=== PATIENT | female | born 1945 | race Caucasian/White ===

== ENCOUNTER → 2016-06-19 | Outpatient (CLI) | payer MEDICARE, OTHER ==
[~2016-06-19] MED LIST: ASCO500T6 PO; ASPI-479; BUDE10.2; BUDE10.22 INH; CETI10TA20 PO; CHOL100061 PO; ESTR1PAT10 TD; FERR325C; FERR325T36 PO; FLUO20CA42 PO; FURO-125; HCA25SU PR; HYDR30CR RC; MTP25TSR PO; MULT-74; OMEP20CA6; PANT40TA2 PO; SULI200T PO; TRAM-25 PO
[2016-06-19 10:41] LABS: BASOPHILS % (AUTO) 0 % (0-2); EOSINOPHILS # (AUTO) 0.2 10^3uL; EOSINOPHILS % (AUTO) 4 % (0-4); LYMPHOCYTES # (AUTO) 1.4 X10^3; MEAN CORPUSCULAR HEMOGLOBIN 29.5 PG (26.0-34.0); MEAN CORPUSCULAR HGB CONC 33.2 g/dL (31.0-37.0); MEAN CORPUSCULAR VOLUME 89 FL (80-100); MONOCYTES # (AUTO) 0.6 X10^3; MONOCYTES % (AUTO) 11 % (3-11); NEUTROPHILS # (AUTO) 3.4 X10^3; NEUTROPHILS % (AUTO) 60 % (51-67); PLATELET COUNT 259 10^3uL (150-450); WHITE BLOOD COUNT 5.73 10^3uL (4.0-11.0)
[2016-06-19 10:51] LABS: BILIRUBIN,URINE Negative (Negative); CLARITY,URINE Clear; COLOR,URINE Yellow; GLUCOSE, URINE (UA) Negative (Negative); LEUKOCYTE ESTERASE ,URINE Negative (Negative); UROBILINOGEN,URINE 0.2 mg/dL (0.2-1.0)
[2016-06-19 10:57] LABS: ALBUMIN 4.2 g/dL (3.4-5.0); ANION GAP 18.5 MEQ/L (3-15); CALCULATED IONIZED CALCIUM 3.9 mg/dL (3.8-4.6); MAGNESIUM* 1.9 mg/dL (1.6-2.3)
--- NOTE | 2016-06-19 16:10 | Diagnostic Imaging Report ---
INDICATION: Arthritis. Back pain. COMPARISON: While I have no previous for direct comparison, exam interpreted in correlation with a two-view chest x-ray which was performed on 06/21/2015. FINDINGS: The thoracic vertebral body statures are stable and are aligned anatomically. No acute or suspicious endplate irregularity. There is relatively mild [id number] thoracic spondylosis showing no obvious progression. No bony destructive process. Frontal view shows very minimal rightward convexity scoliotic type curvature unchanged with some chronic biapical pleural-parenchymal scarring greater right also unchanged. IMPRESSION: Stable chronic findings. No fracture, malalignment, or change from the chest radiograph performed one year ago. Dictated by: Dictated on workstation # [id number]
--- NOTE | 2016-06-19 16:26 | Diagnostic Imaging Report ---
INDICATION: Dyspnea. COMPARISON: 06/21/2015. FINDINGS: Some chronic flattening of the diaphragms and air trapping is a stable finding. Some minimal linear scarring in the lingular segment is an unchanged chronic finding. Some mild biapical pleural-parenchymal scarring greater right also stable and chronic. No acute infiltrate, failure, effusion, or pneumothorax. IMPRESSION: Stable chronic findings. Dictated by: Dictated on workstation # [id number]
[2016-06-19 19:13] LABS: VITAMIN B 12 >2000 pg/mL (213-816)
== END ==
LOC: LAB 10:07
PROVIDERS: ATTEND Family Medicine
DX: I48.0 Paroxysmal atrial fibrillation (principal); R06.00 Dyspnea, unspecified; M12.80 Other specific arthropathies, not elsewhere classified, unspecified site; N60.11 Diffuse cystic mastopathy of right breast; N60.12 Diffuse cystic mastopathy of left breast; N60.01 Solitary cyst of right breast; R79.89 Other specified abnormal findings of blood chemistry; E78.2 Mixed hyperlipidemia; D50.8 Other iron deficiency anemias; N39.0 Urinary tract infection, site not specified; E13.65 Other specified diabetes mellitus with hyperglycemia; E83.42 Hypomagnesemia; E03.4 Atrophy of thyroid (acquired); M81.0 Age-related osteoporosis without current pathological fracture
CPT/HCPCS: 36415; 71020; 72072; 80053; 80061; 81003; 82306; 82607; 82728; 83036; 83735; 84436; 84443; 85025; 93005

== ENCOUNTER → 2016-06-24 | Outpatient (CLI) | payer MEDICARE, OTHER ==
--- NOTE | 2016-06-24 18:23 | Diagnostic Imaging Report ---
INDICATION: Screening mammogram. COMPARISON: 04/06/2013 through 06/21/2015. The current study was also evaluated with a Computer Aided Detection (CAD) system. FINDINGS: Multiple mammographic views of the breasts were obtained. There are scattered fibroglandular densities that could obscure a lesion on mammography. There is no dominant mass, suspicious cluster of microcalcifications or other evidence to indicate malignancy. There has been no significant change from prior mammograms. Followup sonographic evaluation of the right breast was performed to evaluate previously described retroareolar hypoechoic lesion. The lesion is stable compared to 06/08/2014. Please note, this was separately dictated. IMPRESSION: Stable mammogram without evidence of malignancy. ACR BI-RADS Category 2: Benign findings. Result letter will be mailed to the patient. FOLLOW-UP: Patient may return to yearly screening mammograms. NOTE: Keep in mind that about 10% of breast cancers will not be identified on mammography. Further evaluation of a palpable mass not seen on mammography should be based on clinical grounds. Dictated by: Dictated on workstation # [id number]
--- NOTE | 2016-06-24 18:28 | Diagnostic Imaging Report ---
INDICATION: Followup right breast lesion. COMPARISON: Mammographic evaluation from earlier the same day and previous sonograms dated 06/28/2015 and 06/08/2014 FINDINGS: Focused sonographic evaluation of the retroareolar region of the right breast again demonstrates nonspecific hypoechoic lesion that measures approximately 4 x 5 x 3 mm. This is stable compared to 06/08/2014, in which it measured approximately 5 x 6 x 4 mm. Margins remain well-circumscribed. No new lesions are seen within the retroareolar area of the right breast. IMPRESSION: 1. Hypoechoic lesion within the retroareolar region of the right breast shows no significant change when compared to 06/08/2014. Findings are consistent with benignity. BI-RADS category 2: Benign findings Recommendations: Patient may return to yearly screening mammograms. Dictated by: Dictated on workstation # [id number]
== END ==
LOC: RAD 13:51
PROVIDERS: ATTEND Family Medicine
DX: R06.00 Dyspnea, unspecified (principal); N60.11 Diffuse cystic mastopathy of right breast; N60.12 Diffuse cystic mastopathy of left breast; N60.01 Solitary cyst of right breast
CPT/HCPCS: 76642; G0204